=== PATIENT | female | born 1950 | race Caucasian/White ===

== ENCOUNTER 2023-04-30 09:22 | Emergency (ER) | payer MEDICARE ==
--- NOTE | 2023-04-30 09:58 | ED ---
Lower Extremity Injury HPI - General Chief Complaint: Extremity Injury, Lower Stated Complaint: right hip pain Time Seen by Provider: 04/30/23 09:58 Source: patient, RN notes reviewed Mode of arrival: ambulatory Limitations: no limitations - History of Present Illness Initial Comments: 72-year-old female presents emergency Department which complaint of right hip pain. Patient states that she's been dealing with worsening pain last 2 months. Patient states she recently moved here and was sent here today by her PCP for x-rays. Patient denies any trauma she states with certain movements the pain is worse. - Related Data Allergies Allergy/AdvReac Type Severity Reaction Status Date / Time No Known Allergies Allergy Verified 04/30/23 09:36 Review of Systems ROS Statement: Those systems with pertinent positive or pertinent negative responses have been documented in the HPI. ROS Other: All systems not noted in ROS Statement are negative. Past Medical History Past Medical History: Diabetes Mellitus, GERD/Reflux, Hyperlipidemia, Hypertension, Thyroid Disorder Additional Past Medical History / Comment(s): back pain, History of Any Multi-Drug Resistant Organisms: None Reported Past Surgical History: Section Additional Past Surgical History / Comment(s): back surgery x 2, right hand carpal tunnnel, Past Psychological History: No Psychological Hx Reported Smoking Status: Never smoker Past Alcohol Use History: None Reported Past Drug Use History: None Reported General Exam - General Exam Comments Initial Comments: Visual Physical Exam Vital signs reviewed General: Well-appearing, nontoxic, no acute distress. Head: Normocephalic, atraumatic Eyes: PERRLA, EOMI ENT: Airway patent Chest: Nonlabored breathing Skin: No visual rash, normal skin tone Neuro: Alert and oriented 3 Musculoskeletal: No gross abnormalities Limitations: no limitations Course Vital Signs 04/30/23 09:27 Temperature 98.0 F Pulse Rate 75 Respiratory 18 Rate Blood Pressure 118/59 O2 Sat by Pulse 94 L Oximetry Medical Decision Making - Medical Decision Making I completed the quick note portion of this chart signed Cory Gooden PA-C Was pt. sent in by a medical professional or institution ([facility], BUYER ASSISTANT, urgent care, hospital, or correction...) When possible be specific @ -PCP Did you speak to anyone other than the patient for history (EMS, parent, family, police, friend...)? What history was obtained from this source @ -No Did you review nursing and triage notes (agree or disagree)? Why? @ -I reviewed and agree with nursing and triage notes Were old charts reviewed (outside hosp., previous admission, EMS record, old EKG, old radiological studies, urgent care reports/EKG's, correction records)? Report findings @ -No old charts were reviewed Differential Diagnosis (chest pain, altered mental status, abdominal pain women, abdominal pain men, vaginal bleeding, weakness, fever, dyspnea, syncope, headache, dizziness, GI bleed, back pain, seizure, CVA, palpatations, mental health, musculoskeletal)? @ -Osteoarthritis, hip pain, hip strain EKG interpreted by me (3pts min.). @ -None x-ray right hip with pelvis shows no significant abnormality mild or cerebritis X-rays interpreted by me (1pt min.). @ -None done CT interpreted by me (1pt min.). @ -None done U/S interpreted by me (1pt. min.). @ -None done What testing was considered but not performed or refused? (CT, X-rays, U/S, labs)? Why? @ -None What meds were considered but not given or refused? Why? @ -None Did you discuss the management of the patient with other professionals (professionals i.e. , PA, BUYER ASSISTANT, lab, RT, psych nurse, psych social worker, locksmith, teacher, control officer manager, behavioral health case manager)? Give summary @ -No Was smoking cessation discussed for >3mins.? @ -No Was critical care preformed (if so, how long)? @ -No Were there social determinants of health that impacted care today? How? (Homelessness, low income, unemployed, alcoholism, drug addiction, transportation, low edu. Level, literacy, decrease access to med. care, penitentiary, rehab)? @ -No Was there de-escalation of care discussed even if they declined (Discuss DNR or withdrawal of care, Hospice)? DNR status @ -No What co-morbidities impacted this encounter? (DM, HTN, Smoking, COPD, CAD, Cancer, CVA, ARF, Chemo, Hep., AIDS, mental health diagnosis, sleep apnea, morbid obesity)? @ -None Was patient admitted / discharged? Hospital course, mention meds given and route, prescriptions, significant lab abnormalities, going to OR and other pertinent info. @ -Patient was discharged the patient left prior to receiving results. Undiagnosed new problem with uncertain prognosis? @ -No Drug Therapy requiring intensive monitoring for toxicity (Heparin, Nitro, Insulin, Cardizem)? @ -No Were any procedures done? @ -No Diagnosis/symptom? @ -Right hip pain Acute, or Chronic, or Acute on Chronic? @ -Acute Uncomplicated (without systemic symptoms) or Complicated (systemic symptoms)? @ -Uncomplicated Side effects of treatment? @ -No Exacerbation, Progression, or Severe Exacerbation? @ -No Poses a threat to life or bodily function? How? (Chest pain, [place], [place], pneumonia, PE, COPD, DKA, ARF, appy, cholecystitis, CVA, Diverticulitis, Homicidal, Suicidal, threat to staff... and all critical care pts) @ -No Disposition Clinical Impression: Right hip pain Disposition: LEFT AGAINST MEDICAL ADVICE Condition: Stable Referrals: David Guerrero DO [Primary Care Provider] - 1-2 days Quinn Bermeo DO [Doctor of Osteopathic Medicine] - 1-2 days Time of Disposition: 10:43
[2023-04-30 10:02] VITALS: BP 118/59; PULSE 75; RESP 18; TEMP 98
--- NOTE | 2023-04-30 10:24 | XR ---
EXAMINATION TYPE: XR Hip RT and AP Pelvis DATE OF EXAM: 04/30/2023 CLINICAL HISTORY: pain TECHNIQUE: AP and frogleg views of the right hip are obtained. COMPARISON: None. FINDINGS: There is no acute fracture/dislocation evident. The joint space appears mildly narrowed. The overlying soft tissue appears unremarkable. IMPRESSION: 1. There is no acute fracture or dislocation. ICD 10 NO FRACTURE, INITIAL EVALUATION
== END 2023-04-30 11:47 | disposition left against medical advice (07) ==
LOC: EC 09:22
DX: M25.551 Pain in right hip (principal); E11.9 Type 2 diabetes mellitus without complications; I10 Essential (primary) hypertension; Z53.29 Procedure and treatment not carried out because of patient's decision for other reasons
CPT/HCPCS: 73502; 99283

== ENCOUNTER 2023-07-23 19:03 | Emergency (ER) | payer MEDICARE, OTHER ==
--- NOTE | 2023-07-23 19:29 | ED ---
Wound/Laceration HPI - General Chief Complaint: Wound/Laceration Stated Complaint: R Pinky Lac Time Seen by Provider: 07/23/23 19:28 Source: patient Mode of arrival: ambulatory Limitations: no limitations - History of Present Illness Initial Comments: 73-year-old female presenting with chief complaint of right fifth digit laceration. Patient was doing the dishes when a dish broke and cut her finger. She does not know when her last tetanus shot was. Bleeding is well-controlled at this time. She still has full range of motion and sensation to the finger. - Related Data Allergies Allergy/AdvReac Type Severity Reaction Status Date / Time No Known Allergies Allergy Verified 04/30/23 09:36 Review of Systems ROS Statement: Those systems with pertinent positive or pertinent negative responses have been documented in the HPI. ROS Other: All systems not noted in ROS Statement are negative. Past Medical History Past Medical History: Diabetes Mellitus, GERD/Reflux, Hyperlipidemia, Hypertensi on, Thyroid Disorder Additional Past Medical History / Comment(s): back pain, History of Any Multi-Drug Resistant Organisms: None Reported Past Surgical History: Section Additional Past Surgical History / Comment(s): back surgery x 2, right hand carpal tunnnel, Past Psychological History: No Psychological Hx Reported Smoking Status: Never smoker Past Alcohol Use History: None Reported Past Drug Use History: None Reported General Exam - General Exam Comments Initial Comments: Visual Physical Exam Vital signs reviewed General: Well-appearing, nontoxic, no acute distress. Head: Normocephalic, atraumatic Eyes: PERRLA, EOMI ENT: Airway patent Chest: Nonlabored breathing Skin: No visual rash, normal skin tone Neuro: Alert and oriented 3 Musculoskeletal: No gross abnormalities Limitations: no limitations General appearance: alert, in no apparent distress Head exam: Present: atraumatic, normocephalic Eye exam: Present: normal appearance Neck exam: Present: normal inspection Respiratory exam: Absent: respiratory distress Cardiovascular Exam: Present: regular rate Right Hand Wrist exam: Present: full ROM. Absent: tenderness Neurological exam: Present: alert, oriented X3 Psychiatric exam: Present: normal affect, normal mood Expanded Type of lesion: Present: laceration (2 cm laceration to the right fifth digit) Course Vital Signs 07/23/23 07/23/23 19:05 20:38 Temperature 98.1 F 98.0 F Pulse Rate 79 75 Respiratory 20 18 Rate Blood Pressure 141/72 115/54 O2 Sat by Pulse 96 94 L Oximetry Procedures - Laceration Laceration #1 Consent Obtained: verbal consent Indication: laceration Site: hand Size (cm): 2 Description: linear Depth: simple, single layer Anesthetic Used: lidocaine 1%, without epi Anesthesia Technique: local infiltration Pre-repair: wound explored Type of Sutures: nylon Size of Sutures: 4-0 Number of Sutures: 3 Technique: simple, interrupted Patient Tolerated Procedure: well Medical Decision Making - Medical Decision Making Was pt. sent in by a medical professional or institution (, [facility], RELIGION INSTRUCTOR, urgent care, hospital, or fdc...) When possible be specific @ -No Did you speak to anyone other than the patient for history (EMS, parent, family, police, friend...)? What history was obtained from this source @ -No Did you review nursing and triage notes (agree or disagree)? Why? @ -I reviewed and agree with nursing and triage notes Were old charts reviewed (outside hosp., previous admission, EMS record, old EKG, old radiological studies, urgent care reports/EKG's, fdc records)? Report findings @ -No old charts were reviewed Differential Diagnosis (chest pain, altered mental status, abdominal pain women, abdominal pain men, vaginal bleeding, weakness, fever, dyspnea, syncope, headache, dizziness, GI bleed, back pain, seizure, CVA, palpatations, mental health, musculoskeletal)? @ -Not applicable EKG interpreted by me (3pts min.). @ -As above X-rays interpreted by me (1pt min.). @ -None done CT interpreted by me (1pt min.). @ -None done U/S interpreted by me (1pt. min.). @ -None done What testing was considered but not performed or refused? (CT, X-rays, U/S, labs)? Why? @ -None What meds were considered but not given or refused? Why? @ -None Did you discuss the management of the patient with other professionals (professionals i.e. [facility], RELIGION INSTRUCTOR, lab, RT, psych nurse, social services designee, lawyer real estate, teacher, service officer, upper caser)? Give summary @ -No Was smoking cessation discussed for >3mins.? @ -No Was critical care preformed (if so, how long)? @ -No Were there social determinants of health that impacted care today? How? (Homelessness, low income, unemployed, alcoholism, drug addiction, transportation, low edu. Level, literacy, decrease access to med. care, detention, rehab)? @ -No Was there de-escalation of care discussed even if they declined (Discuss DNR or withdrawal of care, Hospice)? DNR status @ -No What co-morbidities impacted this encounter? (DM, HTN, Smoking, COPD, CAD, Cancer, CVA, ARF, Chemo, Hep., AIDS, mental health diagnosis, sleep apnea, morbid obesity)? @ -None Was patient admitted / discharged? Hospital course, mention meds given and route, prescriptions, significant lab abnormalities, going to OR and other pertinent info. @ -73-year-old female presented chief complaint of 2 cm laceration to the right fifth digit. She cut the finger on a broken dish while doing dishes tonight. Tetanus is updated at this visit. Wound is cleansed and repaired. She is educated on wound care and signs of infection. Discharged home. Follow-up with PCP. Report back to ER with any new or worsening symptoms. Discussed return parameters and answered all questions. Patient conveyed verbal understanding and agreed to the plan. I discussed this case in detail with my attending Dr. Cassidy Undiagnosed new problem with uncertain prognosis? @ -No Drug Therapy requiring intensive monitoring for toxicity (Heparin, Nitro, Insulin, Cardizem)? @ -No Were any procedures done? @ -Laceration repair Diagnosis/symptom? @ -Finger laceration Acute, or Chronic, or Acute on Chronic? @ -Acute Uncomplicated (without systemic symptoms) or Complicated (systemic symptoms)? @ -Uncomplicated Side effects of treatment? @ -No Exacerbation, Progression, or Severe Exacerbation? @ -No Poses a threat to life or bodily function? How? (Chest pain, [place], [place], pneumonia, PE, COPD, DKA, ARF, appy, cholecystitis, CVA, Diverticulitis, Homicidal, Suicidal, threat to staff... and all critical care pts) @ -No Disposition Clinical Impression: Laceration Disposition: HOME SELF-CARE Condition: Good Instructions (If sedation given, give patient instructions): Care For Your Stitches (ED), Finger Laceration (ED) Additional Instructions: Follow up with PCP. Report back to ER with any new or worsening symptoms. Keep the wound clean dry and covered. Wash daily with soap and water. Sutures may be removed in 10 to 14 days. Monitor for signs of infection, including but not limited to redness, swelling, warmth, tenderness, discharge Is patient prescribed a controlled substance at d/c from ED?: No Referrals: David Guerrero DO [Primary Care Provider] - 1-2 days Time of Disposition: 20:13
[2023-07-23] MEDS: DIPH,PERTUS(ACELL)TETVAC-LF 0.5 ML VIAL IM ONE (20:26)
[2023-07-23] MEDS: BACITRACIN OINT 1 EACH PACKET TOPICAL ONE ×2 (20:34)
[2023-07-23 20:52] VITALS: BP 115/54; PULSE 75; RESP 18; TEMP 98
== END 2023-07-23 20:44 | disposition home or self-care (01) ==
LOC: EC 19:03
DX: S61.216A Laceration without foreign body of right little finger without damage to nail, initial encounter (principal); E11.9 Type 2 diabetes mellitus without complications; I10 Essential (primary) hypertension; Z23 Encounter for immunization; W26.8XXA Contact with other sharp object(s), not elsewhere classified, initial encounter
CPT/HCPCS: 12001; 90471; 90715; 99282

== ENCOUNTER 2023-11-16 09:38 | Inpatient (IN) | payer MEDICARE, OTHER ==
--- NOTE | 2023-11-16 10:42 | ED ---
Fall HPI - General Chief Complaint: Extremity Injury, Lower Stated Complaint: Fall Time Seen by Provider: 11/16/23 09:46 Source: patient, RN notes reviewed Mode of arrival: ambulatory Limitations: no limitations - History of Present Illness Initial Comments: This is a 73-year-old female who presents to the emergency department for a fall. States that this morning she was letting out her dog when she tripped and fell, landing on her left side. Denies hitting her head or any loss of consciousness. Not taking any blood thinners. Currently has pain over the left hip and left femur. States that this is making it difficult for her to ambulate. Reports some pain over the left elbow and shoulder as well, however it is not as severe as the leg. She does have an abrasion to the elbow. Unsure when her last tetanus vaccine was. MD Complaint: fall - Related Data Home Medications Medication Instructions Recorded Confirmed Baclofen [Lioresal] 10 mg PO BID 11/16/23 11/16/23 Cyclobenzaprine [Flexeril] 10 mg PO BID 11/16/23 11/16/23 Docusate [Colace] 100 mg PO TID 11/16/23 11/16/23 Gabapentin 800 mg PO BID@0700,2100 11/16/23 11/16/23 Gabapentin 800 mg PO DAILY@1400 11/16/23 11/16/23 HYDROcodone/APAP 10-325MG [[place] 1 tab PO TID PRN 11/16/23 11/16/23 10-325] Levothyroxine Sodium [Synthroid] 75 mcg PO DAILY 11/16/23 11/16/23 Magnesium Oxide [Mag-Ox] 400 mg PO DAILY 11/16/23 11/16/23 Nebivolol HCl 5 mg PO DAILY 11/16/23 11/16/23 Omeprazole 20 mg PO DAILY 11/16/23 11/16/23 Pravastatin Sodium [Pravachol] 40 mg PO DAILY 11/16/23 11/16/23 Spironolactone [Aldactone] 50 mg PO DAILY 11/16/23 11/16/23 metFORMIN HCL [metFORMIN HCL ER] 750 mg PO DAILY 11/16/23 11/16/23 Allergies Allergy/AdvReac Type Severity Reaction Status Date / Time No Known Allergies Allergy Verified 11/16/23 15:36 Review of Systems ROS Statement: Those systems with pertinent positive or pertinent negative responses have been documented in the HPI. ROS Other: All systems not noted in ROS Statement are negative. Past Medical History Past Medical History: Diabetes Mellitus, GERD/Reflux, Hyperlipidemia, Hypertension, Thyroid Disorder Additional Past Medical History / Comment(s): back pain, History of Any Multi-Drug Resistant Organisms: None Reported Past Surgical History: Section Additional Past Surgical History / Comment(s): back surgery x 2, right hand carpal tunnnel, Past Psychological History: No Psychological Hx Reported Smoking Status: Never smoker Past Alcohol Use History: None Reported Past Drug Use History: None Reported General Exam Limitations: no limitations General appearance: alert, in no apparent distress Head exam: Present: atraumatic, normocephalic, normal inspection Respiratory exam: Present: normal lung sounds bilaterally. Absent: respiratory distress, wheezes, rales, rhonchi, stridor Cardiovascular Exam: Present: regular rate, normal rhythm, normal heart sounds. Absent: systolic murmur, diastolic murmur, rubs, gallop, clicks Extremities exam: Present: other (Tenderness palpation over the left hip with range of motion limited by pain. 2+ DP and PT pulses. Superficial abrasion over the left elbow. Tenderness to palpation over the left shoulder. 2+ radial pulses.) Neurological exam: Present: alert, oriented X3, CN II-XII intact Psychiatric exam: Present: normal affect, normal mood Skin exam: Present: warm, dry, normal color. Absent: rash Course Vital Signs 11/16/23 11/16/23 11/16/23 09:42 13:11 14:45 Temperature 98 F Pulse Rate 75 71 77 Respiratory 20 18 18 Rate Blood Pressure 141/78 112/70 130/64 O2 Sat by Pulse 96 96 99 Oximetry Medical Decision Making - Medical Decision Making This is a 73 year old female who presents to the emergency department for left leg pain after a fall. Was pt. sent in by a medical professional or institution? @ -No Did you speak to anyone other than the patient for history? @ -No Did you review nursing and triage notes? @ -Yes, and I agree, it is accurate with regards to the patient's symptoms. Were old charts reviewed? @ -No Differential Diagnosis? @ -Differential Musculoskeletal: Muscular strain, contusion, ligament sprain, fracture, arthritis, septic arthritis, bursitis, cellulitis, muscle spasm, nerve compression, DVT, arterial occlusion, herpes zoster, electrolyte abnormality, tumor.... This is not meant to be in all inclusive list EKG interpreted by me (3pts min.)? @ -Not obtained X-rays interpreted by me (1pt min.)? @ -X-ray of the left hip/pelvis, left femur, left elbow, and left shoulder obtained. My interpretation of all imaging identifies no acute fractures. CT interpreted by me (1pt min.)? @ -CT scan of the left hip obtained. My interpretation identifies a left greater trochanter fracture. U/S interpreted by me (1pt. min.)? @ -Not obtained What testing was considered but not performed? (CT, X-rays, U/S, labs)? Why? @ -None What meds were considered but not given? Why? @ -None Did you discuss the management of the patient with other professionals? @ -No Did you reconcile home meds? @ -Yes Was smoking cessation discussed for >3mins.? @ -No Was critical care preformed (if so, how long)? @ -No Were there social determinants of health that impacted care today? How? (Homelessness, low income, unemployed, alcoholism, drug addiction, transportation, low edu. Level, literacy, decrease access to med. care, custodial, rehab)? @ -No Was there de-escalation of care discussed even if they declined? (Discuss DNR or withdrawal of care, Hospice)? @ -No What co-morbidities impacted this encounter? (DM, HTN, Smoking, COPD, CAD, Cancer, CVA, Hep., AIDS, mental health diagnosis, sleep apnea, morbid obesity)? @ -None Was patient admitted / discharged? @ -Admitted. We initially proceeded with x-rays of the left hip/pelvis, left femur, left shoulder, and left elbow. Images were negative for any acute injury. Patient did however continue to be in severe pain with difficulty moving the leg and with ambulation. CT scan of the hip was subsequently obtained. This demonstrated a mildly comminuted, mildly displaced fracture of the superior aspect of the left greater trochanter. Patient was given several doses of pain medication to see if she could ambulate with the use of a walker, however she continued to be in too much pain. She is also on multiple pain medications at home, which would limit our ability to manage her on an outpatient basis. She was subsequently admitted to medicine for management of pain related to greater trochanter fracture. Consult placed for orthopedics. Undiagnosed new problem with uncertain prognosis? @ -None Drug Therapy requiring intensive monitoring for toxicity (Heparin, Nitro, Insulin, Cardizem)? @ -None Were any procedures done? @ -None Diagnosis/symptom? @ -Fall, left greater trochanter fracture Acute, or Chronic, or Acute on Chronic? @ -Acute Uncomplicated (without systemic symptoms) or Complicated (systemic symptoms)? @ -Uncomplicated Side effects of treatment? @ -None Exacerbation, Progression, or Severe Exacerbation] @ -Not applicable Poses a threat to life or bodily function? @ -Yes, patient is unable to ambulate This case was discussed in detail with the attending ED physician, Dr. Miramontes. Presentation, findings, and treatment plan discussed in detail as well. - Radiology Data Radiology results: report reviewed, image reviewed Disposition Clinical Impression: Fracture of greater trochanter of left femur, Fall, Inability to ambulate due to hip Disposition: ADMITTED IP TO THIS [facility] Referrals: David Guerrero DO [Primary Care Provider] - 1-2 days
[2023-11-16] MEDS: DIPH,PERTUS(ACELL)TETVAC-LF 0.5 ML VIAL IM ONE (12:11)
[2023-11-16] MEDS: KETOROLAC 15 MG/ML 1 ML VIAL IM STA (12:11)
--- NOTE | 2023-11-16 12:11 | XR ---
EXAMINATION TYPE: XR Hip LT and AP Pelvis DATE OF EXAM: 11/16/2023 11:03 AM CLINICAL INDICATION:Female, 73 years old with history of Fall; [facility] COMPARISON: None. TECHNIQUE: Frontal view pelvis with 2 views left hip. 4 views left femur. 3 views left shoulder. 3 vi ews left elbow. FINDINGS: Normal osseous mineralization. No destructive lesions are seen. Pelvis and left hip: Pelvis appear symmetric and intact without evidence of acute fracture. Mild to moderate bilateral hip arthropathy without evidence of hip fracture or dislocation. Degenerative and postoperative changes of the lower lumbar spine with mild to moderate degenerative change of the SI joints. Left femur: Left femur appears intact. Visualized knee shows mild/moderate tricompartmental osteoarthropathy without fracture or dislocation on these views. Left shoulder: Mild degenerative change of the glenohumeral and A/C joints without evidence of fracture or dislocati on. Left elbow: Mild/moderate degenerative changes of the elbow without acute fracture or dislocation. Enthesopathic spurring of the proximal ulna with adjacent dystrophic soft tissue calcification. No significant elbo w joint effusion seen. No radiopaque foreign body. IMPRESSION: No acute fracture or dislocation identified in the pelvis, left hip/femur, left shoulder, or left elb ow.
--- NOTE | 2023-11-16 12:13 | XR ---
EXAMINATION TYPE: XR shoulder complete LT DATE OF EXAM: 11/16/2023 11:04 AM CLINICAL INDICATION:Female, 73 years old with history of Fall; [facility] COMPARISON: None. TECHNIQUE: Frontal view pelvis with 2 views left hip. 4 views left femur. 3 views left shoulder. 3 vi ews left elbow. FINDINGS: Normal osseous mineralization. No destructive lesions are seen. Pelvis and left hip: Pelvis appear symmetric and intact without evidence of acute fracture. Mild to moderate bilateral hip arthropathy without evidence of hip fracture or dislocation. Degenerative and postoperative changes of the lower lumbar spine with mild to moderate degenerative change of the SI joints. Left femur: Left femur appears intact. Visualized knee shows mild/moderate tricompartmental osteoarthropathy without fracture or dislocation on these views. Left shoulder: Mild degenerative change of the glenohumeral and A/C joints without evidence of fracture or dislocati on. Left elbow: Mild/moderate degenerative changes of the elbow without acute fracture or dislocation. Enthesopathic spurring of the proximal ulna with adjacent dystrophic soft tissue calcification. No significant elbo w joint effusion seen. No radiopaque foreign body. IMPRESSION: No acute fracture or dislocation identified in the pelvis, left hip/femur, left shoulder, or left elb ow.
--- NOTE | 2023-11-16 14:24 | CT ---
EXAMINATION TYPE: CT hip LT wo con DATE OF EXAM: 11/16/2023 12:47 PM COMPARISON: Earlier same day plain films CLINICAL INDICATION:Female, 73 years old with history of Fall; PHH, left hip pain TECHNIQUE: Noncontrast CT was obtained of the left hip. Axial coronal and sagittal reformatted image s, soft tissue and bone window were submitted for review. 3-D reconstruction was created on a [employer] workstation. Contrast used: mL of , Oral contrast used: None CT DLP: 554.8 mGycm, Automated exposure control for dose reduction was used. FINDINGS: Bone: Osseous mineralization is somewhat diminished. No evidence of any focal lytic lesions. Posterior and inferior to the left hip there is a small sclerotic focus which is probably a bone island. Visualized left hemipelvis shows no fracture, to include the acetabulum. Mild degenerative change of the left S I joint. Visualized sacrum appears intact. Mild to moderate degenerative changes of the left femoral acetabular joint. There is no hip dislocati on. Preserved spherical shape of the femoral head with some marginal osteophytes. Femoral head, neck and intertrochanteric region are intact. There is a subtle mildly comminuted fracture involving the s uperior aspect of the greater trochanter, acute in appearance. Degenerative change of the more inferi or greater trochanter with a hook-like osteophyte noted. Visualized proximal femoral shaft is intact. Soft tissues: Soft tissues are unremarkable. No focal fluid collection, soft tissue gas, or radiopaque foreign body is seen. Partially visualized pelvic contents shows the uterus to be deviated into the left hemipelvis. Visual ized bladder is unremarkable. There is a pelvic kidney on the right. Scattered arterial vascular calc ifications. Other: No additional significant finding. IMPRESSION: Mildly comminuted, mildly displaced fracture of the superior aspect of the left greater trochanter.
[2023-11-16] MEDS: MORPHINE SULFATE 2 MG/ML SYRINGE IM STA (14:52)
[2023-11-16] MEDS: NAPROXEN 250 MG TAB PO STA (17:15)
[2023-11-16] MEDS: HYDROcodone/APAP 10-325MG 1 EACH TAB PO ONE (17:16)
[2023-11-16] MEDS ORDERED: MORPHINE SULFATE 4 MG/ML SYRINGE IV PRN (17:59)
[2023-11-16] MEDS ORDERED: KETOROLAC 15 MG/ML 1 ML VIAL IVP PRN (17:59)
[2023-11-16] MEDS ORDERED: NALOXONE 0.4 MG/ML 1 ML VIAL IV PRN (17:59)
[2023-11-16] MEDS ORDERED: ACETAMINOPHEN TAB 325 MG TAB PO PRN (17:59)
[2023-11-16] MEDS ORDERED: IBUPROFEN 400 MG TAB PO PRN (17:59)
[2023-11-16 19:00] LABS: Basophils # (A) 0.1 k/uL (0-0.2); Basophils % (A) 0 %; Eosinophils # (A) 0.2 k/uL (0-0.7); Eosinophils % (A) 2 %; HCT 45.6 % (34.0-46.0); HGB 14.1 gm/dL (11.4-16.0); Hypochromasia Slight; Lymphocytes # (A) 2.6 k/uL (1.0-4.8); Lymphocytes % (A) 21 %; MCH 27.7 pg (25.0-35.0); MCHC 30.8 g/dL (31.0-37.0); MCV 89.7 fL (80.0-100.0); Mean Platelet Volume 10.5; Monocytes # (A) 0.5 k/uL (0-1.0); Monocytes % (A) 4 %; Neutrophils % (A) 71 %; Platelet Count 260 k/uL (150-450); RBC 5.08 m/uL (3.80-5.40); RDW 14.2 % (11.5-15.5); WBC 12.7 k/uL (3.8-10.6)
[2023-11-16 19:25] LABS: ALT 23 U/L (4-34); AST 34 U/L (14-36); African American GFR (CKD) 86 (>60 ml/min/1.73 sqM); Albumin 4.4 g/dL (3.5-5.0); Alkaline Phosphatase 67 U/L (38-126); Anion Gap 7 mmol/L; Blood Urea Nitrogen 11 mg/dL (7-17); Calcium 9.3 mg/dL (8.4-10.2); Carbon Dioxide 26 mmol/L (22-30); Chloride 107 mmol/L (98-107); Glucose 107 mg/dL (74-99); Non-African American GFR(CKD) 75 (>60 ml/min/1.73 sqM); Potassium 4.3 mmol/L (3.5-5.1); Sodium 140 mmol/L (137-145); Total Bilirubin 0.7 mg/dL (0.2-1.3); Total Protein 6.7 g/dL (6.3-8.2)
[2023-11-16] MEDS: HYDROcodone/APAP 10-325MG 1 EACH TAB PO PRN (21:31)
[2023-11-16] MEDS: CYCLOBENZAPRINE 10 MG TAB PO SCH (22:18)
[2023-11-16] MEDS: BACLOFEN 10 MG TAB PO SCH (22:18)
[2023-11-16] MEDS: GABAPENTIN 400 MG CAP PO SCH (22:18)
[2023-11-16] MEDS: DOCUSATE 100 MG CAP PO SCH (22:18)
[2023-11-17 01:59] LABS: Appearance,Urine Clear (Clear); Bilirubin,Urine Negative (Negative); Blood,Urine Negative (Negative); Color,Urine Colorless; Glucose,Urine (UA) Negative (Negative); Ketones,Urine Negative (Negative); Nitrite,Urine Negative (Negative); Protein,Urine Negative (Negative); Specific Gravity,Urine 1.007 (1.001-1.035); Urobilinogen,Urine 0.2 mg/dL (<2.0)
[2023-11-17 02:00] LABS: Bacteria,Urine Few /hpf; Leukocyte Esterase,Urine Moderate (Negative); RBC,Urine 2 /hpf (0-5); Squamous Epithelial Cell,Urine 2 /hpf (0-4); WBC,Urine 25 /hpf (0-5)
[2023-11-17] MEDS: LEVOTHYROXINE 75 MCG TAB PO SCH (06:11)
[2023-11-17] MEDS: PANTOPRAZOLE 40 MG TABLET PO SCH (06:11)
[2023-11-17] MEDS: NEBIVOLOL 5 MG TAB PO SCH (08:15)
[2023-11-17] MEDS: metFORMIN 500 MG TAB PO SCH (08:15)
[2023-11-17] MEDS: MAGNESIUM OXIDE 400 MG TAB PO SCH (08:15)
[2023-11-17] MEDS: SPIRONOLACTONE 25 MG TAB PO SCH (08:15)
[2023-11-17] MEDS: PRAVASTATIN SODIUM 40 MG TAB PO SCH (08:16)
--- NOTE | 2023-11-17 08:55 | P.CNOR ---
History of Present Illness - HPI History of present illness: The patient is a very pleasant relatively healthy 73-year-old female who is presently admitted to internal medicine. Orthopedics was consulted for a left hip greater trochanter fracture. I met with and evaluated the patient this morning. The patient states that yesterday she was letting her dog when she tripped and fell injuring her left hip. She was able to get up and ambulate afterwards. Due to her increasing pain she presented to the ER where x-rays were taken followed by a computed tomography scan both of which showed a minimally displaced greater trochanter fracture. At the time of my evaluation the patient is complaining of pain over the lateral aspect of her hip into the groin. She states that she has been able to walk but it is painful. She denies any prior hip pain. Past Medical History Past Medical History: Diabetes Mellitus, GERD/Reflux, Hyperlipidemia, Hypertension, Thyroid Disorder Additional Past Medical History / Comment(s): back pain, History of Any Multi-Drug Resistant Organisms: None Reported Past Surgical History: Section Additional Past Surgical History / Comment(s): back surgery x 2, right hand carpal tunnnel, puss pockets debridement in vaginal area 1996 Past Anesthesia/Blood Transfusion Reactions: No Reported Reaction Past Psychological History: No Psychological Hx Reported Smoking Status: Former smoker Past Alcohol Use History: None Reported Past Drug Use History: None Reported Medications and Allergies Home Medications Medication Instructions Recorded Confirmed Type Baclofen [Lioresal] 10 mg PO BID 11/16/23 11/16/23 History Cyclobenzaprine [Flexeril] 10 mg PO BID 11/16/23 11/16/23 History Docusate [Colace] 100 mg PO TID 11/16/23 11/16/23 History Gabapentin 800 mg PO BID@0700,2100 11/16/23 11/16/23 History Gabapentin 800 mg PO DAILY@1400 11/16/23 11/16/23 History HYDROcodone/APAP 10-325MG [[place] 1 tab PO TID PRN 11/16/23 11/16/23 History 10-325] Levothyroxine Sodium [Synthroid] 75 mcg PO DAILY 11/16/23 11/16/23 History Magnesium Oxide [Mag-Ox] 400 mg PO DAILY 11/16/23 11/16/23 History Nebivolol HCl 5 mg PO DAILY 11/16/23 11/16/23 History Omeprazole 20 mg PO DAILY 11/16/23 11/16/23 History Pravastatin Sodium [Pravachol] 40 mg PO DAILY 11/16/23 11/16/23 History Spironolactone [Aldactone] 50 mg PO DAILY 11/16/23 11/16/23 History metFORMIN HCL [metFORMIN HCL ER] 750 mg PO DAILY 11/16/23 11/16/23 History Allergies Allergy/AdvReac Type Severity Reaction Status Date / Time No Known Allergies Allergy Verified 11/16/23 15:36 Physical Examination The patient is sitting up at bedside. She is alert and able to answer questions. Her head is normocephalic and atraumatic. She can straight nonlabored breathing with symmetric chest expansion. A focused exam of the left lower extremity was conducted. On inspection of her left hip there are no open wounds or skin lesions. She has tenderness over the greater trochanter. She is able to perform a straight leg raise. She has pain with passive range motion of the hip. She is able to actively plantarflex and dorsiflex her ankle and her toes. Results X-rays of the pelvis and left hip as well as a computed tomography scan of the left hip show a small later trochanter fracture. There is mild hip arthritis. There does not appear to be any intertrochanteric extension. She has a lumbar s pine fusion with instrumentation and the visualized portion of the lower spine. X-rays of the shoulder are negative. - Labs Labs: Abnormal Lab Results - Last 24 Hours (Table) 11/16/23 11/16/23 11/16/23 Range/Units 18:54 18:54 23:49 WBC 12.7 H (3.8-10.6) k/uL MCHC 30.8 L (31.0-37.0) g/dL Neutrophils # 9.0 H (1.3-7.7) k/uL Glucose 107 H (74-99) mg/dL Urine WBC 25 H (0-5) /hpf Urine Bacteria Few H (None) /hpf H & H 11/16/23 Range/Units 18:54 Hgb 14.1 (11.4-16.0) gm/dL Hct 45.6 (34.0-46.0) % Result Diagrams: 11/16/23 18:54 11/16/23 18:54 Assessment and Plan Assessment: Left greater trochanter fracture Plan: I would recommend weightbearing as tolerated with a walker. I would also like to get an MRI of the left hip to evaluate for intertrochanteric extension. Further recommendations following MRI. Time with Patient: Greater than 30
[2023-11-17] MEDS ORDERED: PANTOPRAZOLE 40 MG/10 ML VIAL IV SCH (09:00)
[2023-11-17] MEDS ORDERED: DEXTROSE 50% SYRINGE 50 ML IVP PRN ×2 (14:39)
--- NOTE | 2023-11-17 14:55 | P.HPIM ---
History of Present Illness H&P Date: 11/17/23 This is a 73-year-old female with medical history significant for hypertension, hyperlipidemia, hypothyroidism, neuropathy. She comes into the hospital after suffering a fall with trauma. Patient was letting her dog out when she fell and landed on her left side. She did not hit her head and denies any loss of consciousness. Patient was unable to ambulate this morning was having pain over the left hip and left femur so she came into the hospital for further evaluation. Patient had an x-ray completed of the left elbow showing degenerative changes without acute fracture or dislocation. X-ray of the pelvis and left hip shows no acute fracture of the pelvis and no acute fracture of the hip or dislocation. Patient had continued pain and for this reason a hip CT was completed which shows a mildly comminuted mildly displaced fracture of the superior aspect of the left greater trochanter. Patient is not having any chest pain, any shortness of breath. No numbness or tingling in the left leg. White blood cell count is 12.7, electrolytes and renal function are WNL. Urinalysis is normal and not suggestive of infection. We will check an EKG for preoperative clearance. Patient is on aldactone no reported history of heart failure. REVIEW OF SYSTEMS: CONSTITUTIONAL: No fever, no malaise, no fatigue. HEENT: No recent visual problems or hearing problems. Denied any sore throat. CARDIOVASCULAR: No chest pain, orthopnea, PND, no palpitations, no syncope. PULMONARY: No shortness of breath, no cough, no hemoptysis. GASTROINTESTINAL: No diarrhea, no nausea, no vomiting, no abdominal pain. NEUROLOGICAL: No headaches, no weakness, no numbness. HEMATOLOGICAL: Denies any bleeding or petechiae. GENITOURINARY: Denies any burning micturition, frequency, or urgency. MUSCULOSKELETAL/RHEUMATOLOGICAL: Denies any joint pain, swelling, or any muscle pain. ENDOCRINE: Denies any polyuria or polydipsia. The rest of the 14-point review of systems is negative. PHYSICAL EXAMINATION: GENERAL: The patient is alert and oriented x3, not in any acute distress. Well developed, well nourished. HEENT: Pupils are round and equally reacting to light. EOMI. No scleral icterus. No conjunctival pallor. Normocephalic, atraumatic. No pharyngeal erythema. No thyromegaly. CARDIOVASCULAR: S1 and S2 present. No murmurs, rubs, or gallops. PULMONARY: Chest is clear to auscultation, no wheezing or crackles. ABDOMEN: Soft, nontender, nondistended, normoactive bowel sounds. No palpable organomegaly. MUSCULOSKELETAL: No joint swelling or deformity. EXTREMITIES: No cyanosis, clubbing, or pedal edema. NEUROLOGICAL: Gross neurological examination did not reveal any focal deficits. SKIN: No rashes. Assessment and plan Fall with trauma patient has a mildly comminuted mildly displaced fracture of the superior aspect of the left greater trochanter will be going for an MRI of the hip tomorrow and further recommendations Hx of hypertension on nebivolol which will be held at this time as well as aldactone. Blood pressure is normotensive at this time. Hyperlipidemia maintained on statin therapy. Gastroesophageal reflux disease maintained on protonix Hypothyroidism on synthroid which has been resumed Diabetes mellitus type 2 metformin will be held and continue on accuchecks ACHS and sliding scale insulin. Smoking history GI prophylaxis: protonix DVT prophylaxis: heparin Full Code Check a chest xray and EKG for postoperative clearance if needed. patient will be going for a MRI of the left hip tomorrow. Orthopedics following. As mentioned hold blood pressure medications. Monitor renal function. The impression and plan of care has been dictated by Nurse Taylor Pr actitioner as directed. Dr. Kenneth MD I have performed a history and physical examination and medical decision making of this patient, discussed the same with the dictator, and agree with the dicta tors assessment and plan as written, documented as a scribe. Based on total visit time, I have performed more than 50% of this visit. Past Medical History Past Medical History: Diabetes Mellitus, GERD/Reflux, Hyperlipidemia, Hypertension, Thyroid Disorder Additional Past Medical History / Comment(s): back pain, History of Any Multi-Drug Resistant Organisms: None Reported Past Surgical History: Section Additional Past Surgical History / Comment(s): back surgery x 2, right hand carpal tunnnel, puss pockets debridement in vaginal area 1996 Past Anesthesia/Blood Transfusion Reactions: No Reported Reaction Past Psychological History: No Psychological Hx Reported Smoking Status: Former smoker Past Alcohol Use History: None Reported Past Drug Use History: None Reported Medications and Allergies Home Medications Medication Instructions Recorded Confirmed Type Baclofen [Lioresal] 10 mg PO BID 11/16/23 11/16/23 History Cyclobenzaprine [Flexeril] 10 mg PO BID 11/16/23 11/16/23 History Docusate [Colace] 100 mg PO TID 11/16/23 11/16/23 History Gabapentin 800 mg PO BID@0700,2100 11/16/23 11/16/23 History Gabapentin 800 mg PO DAILY@1400 11/16/23 11/16/23 History HYDROcodone/APAP 10-325MG [[place] 1 tab PO TID PRN 11/16/23 11/16/23 History 10-325] Levothyroxine Sodium [Synthroid] 75 mcg PO DAILY 11/16/23 11/16/23 History Magnesium Oxide [Mag-Ox] 400 mg PO DAILY 11/16/23 11/16/23 History Nebivolol HCl 5 mg PO DAILY 11/16/23 11/16/23 History Omeprazole 20 mg PO DAILY 11/16/23 11/16/23 History Pravastatin Sodium [Pravachol] 40 mg PO DAILY 11/16/23 11/16/23 History Spironolactone [Aldactone] 50 mg PO DAILY 11/16/23 11/16/23 History metFORMIN HCL [metFORMIN HCL ER] 750 mg PO DAILY 11/16/23 11/16/23 History Allergies Allergy/AdvReac Type Severity Reaction Status Date / Time No Known Allergies Allergy Verified 11/16/23 15:36 Physical Exam Vitals: Vital Signs Temp Pulse Pulse Resp BP BP Pulse Ox 11/17/23 07:21 97.9 F 82 18 110/58 96 11/17/23 01:54 98.2 F 79 18 112/55 90 L 11/16/23 22:15 97.7 F 79 18 135/76 94 L 11/16/23 21:27 76 19 119/63 95 11/16/23 18:40 98.5 F 71 18 121/91 94 L 11/16/23 14:45 77 18 130/64 99 Intake and Output 11/16/23 11/17/23 11/17/23 22:59 06:59 14:59 Other: Voiding Method Toilet # Voids 2 Weight 72.575 kg Results CBC & Chem 7: 11/16/23 18:54 11/16/23 18:54 Labs: Abnormal Lab Results - Last 24 Hours (Table) 11/16/23 11/16/23 11/16/23 Range/Units 18:54 18:54 23:49 WBC 12.7 H (3.8-10.6) k/uL MCHC 30.8 L (31.0-37.0) g/dL Neutrophils # 9.0 H (1.3-7.7) k/uL Glucose 107 H (74-99) mg/dL Urine WBC 25 H (0-5) /hpf Urine Bacteria Few H (None) /hpf Assessment and Plan Time with Patient: Less than 30
[2023-11-17 16:27] LABS: Glucose,Whole Blood 92 mg/dL (70-110)
[2023-11-17] MEDS: INSULIN ASPART (NovoLOG) 100 UNIT/ML VIAL SQ SCH (17:14)
[2023-11-17] MEDS: GABAPENTIN 400 MG CAP PO SCH (17:16)
[2023-11-17] MEDS: HEPARIN SODIUM,PORCINE 5,000 UNIT/ML 1 ML VIAL SQ SCH (20:23)
[2023-11-17 20:27] LABS: Glucose,Whole Blood 125 mg/dL (70-110)
[2023-11-18 06:00] LABS: Glucose,Whole Blood 113 mg/dL (70-110)
--- NOTE | 2023-11-18 08:34 | XR ---
EXAMINATION TYPE: XR chest 2V DATE OF EXAM: 11/18/2023 COMPARISON: None INDICATION: Preop TECHNIQUE: Frontal and lateral views of the chest are obtained. FINDINGS: The heart size is normal. The pulmonary vasculature is normal. The lungs are clear. Lumbar spine fixation screws are evident. IMPRESSION: 1. No acute pulmonary process.
[2023-11-18 08:41] LABS: BUN/Creat Ratio 9.12 Ratio (12.00-20.00); Blood Urea Nitrogen 7.3 mg/dL (9.0-27.0); Chloride 108 mmol/L (96-109); Glucose 128 mg/dL (70-110); Potassium 4.8 mmol/L (3.5-5.5); Sodium 142 mmol/L (135-145)
[2023-11-18 08:42] LABS: Carbon Dioxide 23.4 mmol/L (21.6-31.8)
--- NOTE | 2023-11-18 10:44 | MR ---
EXAMINATION TYPE: MR hip LT wo con DATE OF EXAM: 11/18/2023 10:31 AM CLINICAL INDICATION:Female, 73 years old with history of greater troch fx, r/o IT extension; PHH, Lef t greater trochanter fx, R/O IT extension. COMPARISON: CT 11/16/2023. TECHNIQUE: Multiplanar multi-sequential magnetic resonance imaging of the left hip without contrast. IV Contrast: cc none FINDINGS: Degeneration changes of the hips with osteophyte formation. Low signal fracture line is seen extendin g from the left greater trochanter to the lesser trochanter series 201 image 13. There is associated bony edema. This soft tissue swelling and edema around the left hip are noted. There is no additional fractures definitively visualized. Soft tissues: Normal Other: There is a pelvic kidney with out evidence of hydronephrosis. Postsurgical changes to the spin e partially visualized susceptibility artifact. The urinary bladder is within normal limits. The uter us is displaced left laterally. IMPRESSION: 1. Confirmation of intertrochanteric fracture through the left femur without significant displacemen t. 2. Mild bilateral hip osteoarthrosis. 3. Pelvic transplant kidney without evidence of hydronephrosis.
[2023-11-18 11:38] LABS: Glucose,Whole Blood 96 mg/dL (70-110)
[2023-11-18 16:45] LABS: Glucose,Whole Blood 129 mg/dL (70-110)
--- NOTE | 2023-11-18 20:06 | P.PN ---
Subjective Progress Note Date: 11/18/23 This is a 73-year-old female with medical history significant for hypertension, hyperlipidemia, hypothyroidism, neuropathy. She comes into the hospital after suffering a fall with trauma. Patient was letting her dog out when she fell and landed on her left side. She did not hit her head and denies any loss of consciousness. Patient was unable to ambulate this morning was having pain over the left hip and left femur so she came into the hospital for further evaluation. Patient had an x-ray completed of the left elbow showing degenerative changes without acute fracture or dislocation. X-ray of the pelvis and left hip shows no acute fracture of the pelvis and no acute fracture of the hip or dislocation. Patient had continued pain and for this reason a hip CT was completed which shows a mildly comminuted mildly displaced fracture of the superior aspect of the left greater trochanter. Patient is not having any chest pain, any shortness of breath. No numbness or tingling in the left leg. White blood cell count is 12.7, electrolytes and renal function are WNL. Urinalysis is normal and not suggestive of infection. We will check an EKG for preoperative clearance. Patient is on aldactone no reported history of heart failure. 11/18/2023 Patient is evaluated today in follow up on the medical floor. Patient underwent MRI of the left hip today which reveals confirmation of the intertrochanteric fracture through the left femur without significant displacement. Mild bilateral hip osteoarthritis. Pelvic transplant kidney without evidence of hydronephrosis. Patient is hesitant on undergoing surgical repair of the left hip and wants to further discuss with the orthopedics surgeon. Chest xray showing no acute pulmonary process. EKG reveals normal sinus rhythm heart rate of [address] ific ST or T wave changes. Patient is medically cleared with low operative risk to undergo surgical repair of the left hip fracture if patient wishes to proceed. Review of Systems Constitutional: Denied any fatigue denied any fever. Cardio vascular: denied any chest pain, palpitations Gastrointestinal: denied any nausea, vomiting, diarrhea Pulmonary: Denied any shortness of breath cough Neurologic denied any new focal deficits All inpatient medications were reviewed and appropriate changes in these medications as dictated in the interval history and assessment and plan PHYSICAL EXAMINATION: GENERAL: The patient is alert and oriented x3, not in any acute distress. Well developed, well nourished. HEENT: Pupils are round and equally reacting to light. EOMI. No scleral icterus. No conjunctival pallor. Normocephalic, atraumatic. No pharyngeal erythema. No thyromegaly. CARDIOVASCULAR: S1 and S2 present. No murmurs, rubs, or gallops. PULMONARY: Chest is clear to auscultation, no wheezing or crackles. ABDOMEN: Soft, nontender, nondistended, normoactive bowel sounds. No palpable or ganomegaly. MUSCULOSKELETAL: No joint swelling or deformity. EXTREMITIES: No cyanosis, clubbing, or pedal edema. NEUROLOGICAL: Gross neurological examination did not reveal any focal deficits. SKIN: No rashes. Assessment and plan Fall with trauma patient has a mildly comminuted mildly displaced fracture of the superior aspect of the left greater trochanter will be going for an MRI of the hip tomorrow and further recommendations Hx of hypertension on nebivolol which will be held at this time as well as aldactone. Blood pressure is normotensive at this time. Hyperlipidemia maintained on statin therapy. Gastroesophageal reflux disease maintained on protonix Hypothyroidism on synthroid which has been resumed Diabetes mellitus type 2 metformin will be held and continue on accuchecks ACHS and sliding scale insulin. Smoking history GI prophylaxis: protonix DVT prophylaxis: heparin Full Code Patient has been cleared surgically to undergo left hip gamma nail with Dr. Chase tomorrow. Patient is considered low operative and has been medically cleared for surgery. Patient is hesitant on undergoing surgical repair and wishes to further discuss with orthopedics. Continue to hold blood pressure medication as patient is fluctuating between 94 systolic and 139 systolic and we will monitor blood pressure closely and resume nebivolol if needed. Continue to hold metformin and aldactone. Monitor renal function and electrolytes. OT and PT following. The impression and plan of care has been dictated by Carlene Wang Nurse Practitioner as directed. Dr. Kenneth MD I have performed a history and physical examination and medical decision making of this patient, discussed the same with the dictator, and agree with the dictators assessment and plan as written, documented as a scribe. Based on total visit time, I have performed more than 50% of this visit. Objective - Vital Signs Vital signs: Vital Signs Temp 98.0 F 11/18/23 14:00 Pulse 95 11/18/23 14:00 Resp 16 11/18/23 14:00 BP 139/77 11/18/23 14:00 Pulse Ox 96 11/18/23 14:00 FiO2 Intake & Output 11/17/23 11/18/23 11/18/23 18:59 06:59 18:59 Intake Total 320 Balance 320 Intake: Oral 320 Other: Voiding Method Toilet Toilet # Voids 2 3 1 # Bowel Movements 1 - Labs CBC & Chem 7: 11/16/23 18:54 11/18/23 03:50 Labs: Abnormal Lab Results - Last 24 Hours (Table) 11/17/23 11/18/23 11/18/23 Range/Units 20:25 03:50 03:50 BUN 7.3 L (9.0-27.0) mg/dL BUN/Creatinine Ratio 9.12 L (12.00-20.00) Ratio Glucose 128 H (70-110) mg/dL POC Glucose (mg/dL) 125 H (70-110) mg/dL Hemoglobin A1c 7.1 H (<=6.0) % 11/18/23 Range/Units 05:59 BUN (9.0-27.0) mg/dL BUN/Creatinine Ratio (12.00-20.00) Ratio Glucose (70-110) mg/dL POC Glucose (mg/dL) 113 H (70-110) mg/dL Hemoglobin A1c (<=6.0) % Assessment and Plan Time with Patient: Less than 30
[2023-11-18 20:20] LABS: Glucose,Whole Blood 120 mg/dL (70-110)
[2023-11-19 05:42] LABS: Glucose,Whole Blood 121 mg/dL (70-110)
[2023-11-19 08:40] LABS: BUN/Creat Ratio 11.57 Ratio (12.00-20.00); Blood Urea Nitrogen 8.1 mg/dL (9.0-27.0); Calcium 8.9 mg/dL (8.7-10.3); Chloride 107 mmol/L (96-109); Glucose 131 mg/dL (70-110); Potassium 4.5 mmol/L (3.5-5.5); Sodium 143 mmol/L (135-145)
[2023-11-19 12:00] LABS: Glucose,Whole Blood 109 mg/dL (70-110)
[2023-11-19 14:15] LABS: INR 0.9 (<1.2); Partial Thromboplastin Time 24.2 sec (22.0-30.0); Prothrombin Time 10.5 sec (10.0-12.5)
--- NOTE | 2023-11-19 14:28 | P.PN ---
Subjective Progress Note Date: 11/19/23 This is a 73-year-old female with medical history significant for hypertension, hyperlipidemia, hypothyroidism, neuropathy. She comes into the hospital after suffering a fall with trauma. Patient was letting her dog out when she fell and landed on her left side. She did not hit her head and denies any loss of consciousness. Patient was unable to ambulate this morning was having pain over the left hip and left femur so she came into the hospital for further evaluation. Patient had an x-ray completed of the left elbow showing degenerative changes without acute fracture or dislocation. X-ray of the pelvis and left hip shows no acute fracture of the pelvis and no acute fracture of the hip or dislocation. Patient had continued pain and for this reason a hip CT was completed which shows a mildly comminuted mildly displaced fracture of the superior aspect of the left greater trochanter. Patient is not having any chest pain, any shortness of breath. No numbness or tingling in the left leg. White blood cell count is 12.7, electrolytes and renal function are WNL. Urinalysis is normal and not suggestive of infection. We will check an EKG for preoperative clearance. Patient is on aldactone no reported history of heart failure. 11/18/2023 Patient is evaluated today in follow up on the medical floor. Patient underwent MRI of the left hip today which reveals confirmation of the intertrochanteric fracture through the left femur without significant displacement. Mild bilateral hip osteoarthritis. Pelvic transplant kidney without evidence of hydronephrosis. Patient is hesitant on undergoing surgical repair of the left hip and wants to further discuss with the orthopedics surgeon. Chest xray showing no acute pulmonary process. EKG reveals normal sinus rhythm heart rate of [address] and no spec ific ST or T wave changes. Patient is medically cleared with low operative risk to undergo surgical repair of the left hip fracture if patient wishes to proceed. 11/19/2023 Patient is evaluated today in follow-up scheduled to undergo left hip gamma nailing today with Dr. Chase patient reports no pain to the left hip while resting in bed. Remains off of her blood pressure medication and blood pressure is currently normotensive with the 120 systolic. She is not having any shortness of breath or chest pressure she is not having nausea vomiting or diarrhea. She will be evaluated by physical therapy postoperatively. Review of Systems Constitutional: Denied any fatigue denied any fever. Cardio vascular: denied any chest pain, palpitations Gastrointestinal: denied any nausea, vomiting, diarrhea Pulmonary: Denied any shortness of breath cough Neurologic denied any new focal deficits All inpatient medications were reviewed and appropriate changes in these medications as dictated in the interval history and assessment and plan PHYSICAL EXAMINATION: GENERAL: The patient is alert and oriented x3, not in any acute distress. Well developed, well nourished. HEENT: Pupils are round and equally reacting to light. EOMI. No scleral icterus. No conjunctival pallor. Normocephalic, atraumatic. No pharyngeal erythema. No thyromegaly. CARDIOVASCULAR: S1 and S2 present. No murmurs, rubs, or gallops. PULMONARY: Chest is clear to auscultation, no wheezing or crackles. ABDOMEN: Soft, nontender, nondistended, normoactive bowel sounds. No palpable organomegaly. MUSCULOSKELETAL: No joint swelling or deformity. EXTREMITIES: No cyanosis, clubbing, or pedal edema. NEUROLOGICAL: Gross neurological examination did not reveal any focal deficits. SKIN: No rashes. Assessment and plan Fall with trauma patient has a mildly comminuted mildly displaced fracture of the superior aspect of the left greater trochanter will be going for an MRI of the hip tomorrow and further recommendations Hx of hypertension on nebivolol which will be held at this time as well as aldactone. Blood pressure is normotensive at this time. Hyperlipidemia maintained on statin therapy. Gastroesophageal reflux disease maintained on protonix Hypothyroidism on synthroid which has been resumed Diabetes mellitus type 2 metformin will be held and continue on accuchecks ACHS and sliding scale insulin. Smoking history GI prophylaxis: protonix DVT prophylaxis: heparin Full Code Patient has been cleared surgically to undergo left hip gamma nail with Dr. Chase today. Patient is considered low operative and has been medically cleared for surgery. Patient is hesitant on undergoing surgical repair and wishes to further discuss with orthopedics. Continue to hold blood pressure medication as patient is fluctuating between 94 systolic and 139 systolic and we will monitor blood pressure closely and resume nebivolol if needed. Continue to hold metformin and aldactone. Monitor renal function and electrolytes. OT and PT following. The impression and plan of care has been dictated by Carlene Wang Nurse Practitioner as directed. Dr. Kenneth MD I have performed a history and physical examination and medical decision making of this patient, discussed the same with the dictator, and agree with the dictators assessment and plan as written, documented as a scribe. Based on total visit time, I have performed more than 50% of this visit. Objective - Vital Signs Vital signs: Vital Signs Temp 98.7 F 11/19/23 07:25 Pulse 84 11/19/23 07:25 Resp 19 11/19/23 07:25 BP 127/76 11/19/23 07:25 Pulse Ox 93 L 11/19/23 07:25 FiO2 Intake & Output 11/18/23 11/19/23 11/19/23 18:59 06:59 18:59 Intake Total 570 Balance 570 Intake: Oral 570 Other: Voiding Method Toilet Bedside Commode # Voids 2 2 # Bowel Movements 1 - Labs CBC & Chem 7: 11/16/23 18:54 11/19/23 05:13 Labs: Abnormal Lab Results - Last 24 Hours (Table) 11/18/23 11/18/23 11/19/23 Range/Units 16:44 20:18 05:13 BUN 8.1 L (9.0-27.0) mg/dL BUN/Creatinine Ratio 11.57 L (12.00-20.00) Ratio Glucose 131 H (70-110) mg/dL POC Glucose (mg/dL) 129 H 120 H (70-110) mg/dL 11/19/23 Range/Units 05:37 BUN (9.0-27.0) mg/dL BUN/Creatinine Ratio (12.00-20.00) Ratio Glucose (70-110) mg/dL POC Glucose (mg/dL) 121 H (70-110) mg/dL Assessment and Plan Time with Patient: Less than 30
[2023-11-19] MEDS: SODIUM CHLORIDE 0.9% 50 ML with ceFAZolin 2,000 MG IV ONE (14:48)
[2023-11-19 16:15] LABS: Glucose,Whole Blood 117 mg/dL (70-110)
[2023-11-19] MEDS: LACTATED RINGERS 1,000 ML BAG IV STA (16:22)
[2023-11-19] MEDS: ONDANSETRON 4 MG/2 ML VIAL IVP PRN (16:29)
[2023-11-19] MEDS: IV FLUID CONTINUATION 1,000 ML IV ONE (16:39)
[2023-11-19] MEDS ORDERED: KETAMINE HCL IN 0.9 % NACL 50 MG/5 ML SYRINGE ONE (16:43)
[2023-11-19] MEDS ORDERED: fentaNYL (PF) 50 MCG/ML 2 ML AMP ONE (16:43)
[2023-11-19] MEDS ORDERED: PROPOFOL 10 MG/ML 20 ML VIAL IV ONE (16:43)
[2023-11-19] MEDS ORDERED: MIDAZOLAM 2 MG/2 ML VIAL ONE (16:43)
--- NOTE | 2023-11-19 16:52 | P.PN ---
Progress Note - Text I met with the patient yesterday to discuss her MRI findings. Her MRI shows intertrochanteric extension with a nondisplaced intertrochanteric hip fracture. We discussed both nonoperative treatment with protected weightbearing, serial x- rays, and use of a walker versus prophylactic stabilization with an intramedullary hip screw. We discussed that nonoperative treatment would avoid surgery but risk the potential for displacement and require protected weightbearing. Surgery would allow immediate full weightbearing and would prevent displacement but would require surgery. The patient and her daughter were given ample time to ask questions. Following our discussion with the patient and her daughter wish to proceed with surgery.
--- NOTE | 2023-11-19 17:55 | P.OP ---
Date of Procedure: 11/19/23 Preoperative Diagnosis: Left greater trochanter avulsion fracture with intertrochanteric extension across the entire intertrochanteric region Postoperative Diagnosis: Same Procedure(s) Performed: Operative fixation of left intertrochanteric hip fracture with short intramedullary hip screw Anesthesia: spinal Surgeon: Rene Chase Senior Mechanical Designer #1: Sudeep Gibbs Estimated Blood Loss (ml): 100 IV fluids (ml): 800 Pathology: none sent Condition: stable Disposition: PACU Indications for Procedure: The patient is a very pleasant elderly healthy 73-year-old female who sustained a ground-level fall as altering and an isolated left hip injury. She was admitted through the ER and found to have a greater trochanter avulsion fracture. An MRI was obtained which showed intertrochanteric extension. I met with the patient and her daughter to discuss treatment options. We discussed that it could be treated either with nonsurgical treatment, protected weightbearing, and a walker which would risk displacement but avoid surgery versus surgical treatment with an intramedullary hip screw. The patient and her daughter requested proceeding with surgery. Description of Procedure: The patient was identified in preoperative holding and the correct operative extremity was marked with my initials. I reviewed the consent form with the patient and their family and all of their questions were answered. The patient was then brought back to the operating room by anesthesia. Anesthesia, preoperative antibiotics, and tranexamic acid were given by the anesthesia team while on the [place]. Both ankles were padded with webril and boots for the [place] table were applied. The patient was then carefully transferred onto the [place] table. A perineal post was immediately placed. The contralateral arm was s ecured on a well-padded arm howe. The ipsilateral arm was draped across the chest and secured with a pillow, foam, and paper tape to allow access to the proximal femur. Nonsterile drapes were applied to the operative extremity. The height of the table was elevated and the contralateral extremity was dropped towards the floor to facilitate imaging. A timeout was performed identifying the correct patient, operative extremity, and procedure. Fluoroscopy was brought in to assess the fracture. A provisional reduction was performed using longitudinal traction, adduction, and internal rotation. An AP and lateral view were obtained to assess the reduction. The operative extremity was then prepped and draped in the standard sterile fashion. A straight incision was made at the tip of the greater trochanter and extended proximally for 3 cm. Skin and subcutaneous tissues were incised sharply. The underlying fascia was incised in line with the skin incision. An awl was placed just medial to the tip of the greater trochanter on the AP view and colinear with the canal on the lateral view. A 3.2 mm guide pin was then advanced into the proximal femur. The position of the guidepin was verified with fluoroscopy. An opening reamer and soft tissue cannula were placed over the guidepin and used to open the proximal femur to the level of the lesser trochanter. The 3.2 mm guide pin and opening reamer were removed. A short gamma nail was dispensed, hooked up to the targeting arm and I verified that the trochar through the targeting arm lined up with the slots on the nail. The nail was then impacted into the proximal femur until the appropriate depth had been reached. A small stab incision was made over the lateral aspect of the femur using the targeting arm as a reference for the lag screw. Incision was carried down to the skin and fascia down to the lateral cortex of the femur. The trocar was then placed up to the lateral cortex of the femur and a guidepin was placed in the low center position on the AP view and centered in the femoral head on the lateral view. Once the position of the guidewire was verified, we reamed to appropriate depth and placed a lag screw over the guidewire and into the femoral head. The position of the lag screw was assessed with fluoroscopy. The guidewire was then removed from the femoral head. The set screw was placed proximally, brought fully down and then released a quarter turn to allow compression. A final stab incision was made over the lateral femur at the site of the distal interlocking screw, again using the targeting arm as a reference. The trocar and sleeve were placed to the lateral cortex of the femur. We then drilled and placed a distal interlocking screw. Final fluoroscopic images were taken showing excellent reduction of the fracture and appropriate position of the implants. All wounds were thoroughly irrigated and closed in layers. Sterile dressings were applied. The drapes were taken down, the patient was transferred off the [place] table, and was brought to recovery having tolerated the procedure well. Sudeep Gibbs PA-C Was required as a skilled food service assistant for patient positioning, draping, exposure, retraction, closure of wound, and application of dressing. PLAN: The patient can weight-bear as tolerated on their operative extremity. 2 doses of postoperative antibiotics. DVT prophylaxis with aspirin 81 mg twice a day starting the day of surgery. Dressing change on postoperative day #2. Appreciate Internal Medical assistance with perioperative medical management. Discharge planning in process.
[2023-11-19] MEDS ORDERED: NALOXONE 0.4 MG/ML 1 ML VIAL IV PRN (17:57)
[2023-11-19] MEDS: HYDROmorphone 0.5 MG/0.5 ML SYRINGE IVP PRN ×2 (18:18→21:21)
--- NOTE | 2023-11-19 19:03 | XR ---
Fluoroscopy INDICATION: Pain FINDINGS: Fluoroscopy time: 45 seconds. Total dose area product (DAP) in uGy*m?, mGy*cm? (or similar): 4.5832 Images obtained: 4. IMPRESSION: 1. Documentation of fluoroscopy.
[2023-11-19] MEDS: HYDROmorphone 0.5 MG/0.5 ML SYRINGE IVP STA (19:17)
[2023-11-19 20:14] LABS: Glucose,Whole Blood 85 mg/dL (70-110)
[2023-11-20 02:54] LABS: Basophils # (A) 0.06 X 10*3/uL (0.00-0.10); Basophils % (A) 0.5 %; Eosinophils % (A) 1.6 %; HGB 12.8 g/dL (12.0-15.0); Lymphocytes # (A) 1.87 X 10*3/uL (0.90-5.00); Lymphocytes % (A) 14.6 %; MCH 27.9 pg (27.0-32.0); MCHC 29.8 g/dL (32.0-37.0); MCV 93.9 FL (80.0-97.0); Mean Platelet Volume 13.1 FL (9.5-12.2); Monocytes # (A) 0.75 X 10*3/uL (0.20-1.00); Monocytes % (A) 5.8 %; NRBC Per 100 WBC 0 X 10*3/uL (0.00-0.01); Platelet Count 223 X 10*3/uL (140-440); RBC 4.58 X 10*6/uL (4.10-5.20); RDW 14.2 % (11.5-14.5); WBC 12.85 X 10*3/uL (4.50-10.00)
[2023-11-20 05:38] LABS: Glucose,Whole Blood 161 mg/dL (70-110)
--- NOTE | 2023-11-20 08:08 | FL ---
Fluoroscopy History: LT hip ORIF LT gamma nail with Braaksma. 45 sec fluoro time. 4 images sent. 4.5832 DAP.
--- NOTE | 2023-11-20 08:46 | P.PN ---
Subjective Progress Note Date: 11/20/23 Principal diagnosis: Left greater trochanter fracture The patient had no acute events overnight. The patient is doing well this morning. The pain in their left hip has improved since surgery. They deny chest pain or shortness of breath. Objective - Vital Signs Vital signs: Vital Signs Temp 98.6 F 11/20/23 07:30 Pulse 100 11/20/23 07:30 Resp 17 11/20/23 07:30 BP 109/62 11/20/23 07:30 Pulse Ox 96 11/20/23 07:30 FiO2 Intake & Output 11/19/23 11/20/23 11/20/23 18:59 06:59 18:59 Intake Total 650 Output Total 200 Balance 450 Intake: IV 650 Output: Estimated Blood Loss 200 Other: Voiding Method Toilet # Voids 3 1 # Bowel Movements 1 - Exam On exam the patient is resting comfortably in bed. No apparent distress. They are alert and able to answer questions. On inspection of the left hip the skin is intact. There is no drainage. There is a small amount of strikethrough in the middle dressing. There is mild swelling in the left thigh. The femoral nerve function is intact. Patient is able to actively plantarflex and dorsiflex the ankle and toes. - Labs CBC & Chem 7: 11/19/23 19:42 11/19/23 05:13 Labs: Abnormal Lab Results - Last 24 Hours (Table) 11/19/23 11/19/23 11/19/23 Range/Units 05:13 16:13 19:42 WBC 12.85 H (4.50-10.00) X 10*3/uL MCHC 29.8 L (32.0-37.0) g/dL MPV 13.1 H (9.5-12.2) FL Immature Gran # 0.07 H (0.00-0.04) X 10*3/uL Neutrophils # 9.90 H (1.80-7.70) X 10*3/uL BUN 8.1 L (9.0-27.0) mg/dL BUN/Creatinine Ratio 11.57 L (12.00-20.00) Ratio Glucose 131 H (70-110) mg/dL POC Glucose (mg/dL) 117 H (70-110) mg/dL 11/20/23 Range/Units 05:33 WBC (4.50-10.00) X 10*3/uL MCHC (32.0-37.0) g/dL MPV (9.5-12.2) FL Immature Gran # (0.00-0.04) X 10*3/uL Neutrophils # (1.80-7.70) X 10*3/uL BUN (9.0-27.0) mg/dL BUN/Creatinine Ratio (12.00-20.00) Ratio Glucose (70-110) mg/dL POC Glucose (mg/dL) 161 H (70-110) mg/dL Assessment and Plan Assessment: POD#1 Operative fixation of left intertrochanteric hip fracture with short intramedullary hip screw. Plan: Weight-bear as tolerated on the operative extremity with walker. Leave surgical dressing in place. Patient will work with physical therapy today. Discharge plan for tonight or tomorrow and home versus rehab pending physical therapy evaluation.
[2023-11-20 11:20] LABS: Glucose,Whole Blood 123 mg/dL (70-110)
--- NOTE | 2023-11-20 12:46 | P.PN ---
Subjective Progress Note Date: 11/20/23 This is a 73-year-old female with medical history significant for hypertension, hyperlipidemia, hypothyroidism, neuropathy. She comes into the hospital after suffering a fall with trauma. Patient was letting her dog out when she fell and landed on her left side. She did not hit her head and denies any loss of consciousness. Patient was unable to ambulate this morning was having pain over the left hip and left femur so she came into the hospital for further evaluation. Patient had an x-ray completed of the left elbow showing degenerative changes without acute fracture or dislocation. X-ray of the pelvis and left hip shows no acute fracture of the pelvis and no acute fracture of the hip or dislocation. Patient had continued pain and for this reason a hip CT was completed which shows a mildly comminuted mildly displaced fracture of the superior aspect of the left greater trochanter. Patient is not having any chest pain, any shortness of breath. No numbness or tingling in the left leg. White blood cell count is 12.7, electrolytes and renal function are WNL. Urinalysis is normal and not suggestive of infection. We will check an EKG for preoperative clearance. Patient is on aldactone no reported history of heart failure. 11/18/2023 Patient is evaluated today in follow up on the medical floor. Patient underwent MRI of the left hip today which reveals confirmation of the intertrochanteric fracture through the left femur without significant displacement. Mild bilateral hip osteoarthritis. Pelvic transplant kidney without evidence of hydronephrosis. Patient is hesitant on undergoing surgical repair of the left hip and wants to further discuss with the orthopedics surgeon. Chest xray showing no acute pulmonary process. EKG reveals normal sinus rhythm heart rate of 71 and no spec ific ST or T wave changes. Patient is medically cleared with low operative risk to undergo surgical repair of the left hip fracture if patient wishes to proceed. 11/19/2023 Patient is evaluated today in follow-up scheduled to undergo left hip gamma nailing today with Dr. Chase patient reports no pain to the left hip while resting in bed. Remains off of her blood pressure medication and blood pressure is currently normotensive with the 120 systolic. She is not having any shortness of breath or chest pressure she is not having nausea vomiting or diarrhea. She will be evaluated by physical therapy postoperatively. 11/20/2023 Patient is evaluated today postoperative day #1 left hip gamma nailing with Dr. Chase. Patient reports significant pain to the left hip and her lower back. She is continued on [place] as well as IV Dilaudid for breakthrough pain. Patient also has morphine on board. Will dynamically she is stable she is afebrile and on room air. We did order incentive spirometer for this patient would recommend to complete 10 times an hour this was discussed with patient. Review of Systems Constitutional: Denied any fatigue denied any fever. Cardio vascular: denied any chest pain, palpitations Gastrointestinal: denied any nausea, vomiting, diarrhea Pulmonary: Denied any shortness of breath cough Neurologic denied any new focal deficits All inpatient medications were reviewed and appropriate changes in these medications as dictated in the interval history and assessment and plan PHYSICAL EXAMINATION: GENERAL: The patient is alert and oriented x3, not in any acute distress. Well developed, well nourished. HEENT: Pupils are round and equally reacting to light. EOMI. No scleral icterus. No conjunctival pallor. Normocephalic, atraumatic. No pharyngeal erythema. No thyromegaly. CARDIOVASCULAR: S1 and S2 present. No murmurs, rubs, or gallops. PULMONARY: Chest is clear to auscultation, no wheezing or crackles. ABDOMEN: Soft, nontender, nondistended, normoactive bowel sounds. No palpable organomegaly. MUSCULOSKELETAL: No joint swelling or deformity. EXTREMITIES: No cyanosis, clubbing, or pedal edema. NEUROLOGICAL: Gross neurological examination did not reveal any focal deficits. SKIN: No rashes. Assessment and plan Fall with trauma patient has a mildly comminuted mildly displaced fracture of the superior aspect of the left greater trochanter pod #1 left hip gamma nailing. Hx of hypertension on nebivolol which will be held at this time as well as aldactone. Blood pressure is normotensive at this time. Hyperlipidemia maintained on statin therapy. Gastroesophageal reflux disease maintained on protonix Hypothyroidism on synthroid which has been resumed Diabetes mellitus type 2 metformin will be held and continue on accuchecks ACHS and sliding scale insulin. Smoking history GI prophylaxis: protonix DVT prophylaxis: heparin Full Code Plan Continue to hold blood pressure medication including Aldactone and NovoLog patient is currently normotensive. [facility] Therapy has recommended subacute rehab and discharge planning in place with social work. Patient has significant pain to the surgical site and continues on IV and oral pain medication. Continue with supportive care Encourage incentive spirometer Thank you for this consultation we will continue to follow along with you this hospital stay. The impression and plan of care has been dictated by Carlene Wang, Nurse Practitioner as directed. Dr. Kenneth MD I have performed a history and physical examination and medical decision making of this patient, discussed the same with the dictator, and agree with the dictators assessment and plan as written, documented as a scribe. Based on total visit time, I have performed more than 50% of this visit. Objective - Vital Signs Vital signs: Vital Signs Temp 98.6 F 11/20/23 07:30 Pulse 100 11/20/23 07:30 Resp 17 11/20/23 07:30 BP 109/62 11/20/23 07:30 Pulse Ox 96 11/20/23 07:30 FiO2 Intake & Output 11/19/23 11/20/23 11/20/23 18:59 06:59 18:59 Intake Total 650 Output Total 200 Balance 450 Intake: IV 650 Output: Estimated Blood Loss 200 Other: Voiding Method Toilet Toilet # Voids 3 1 # Bowel Movements 1 - Labs CBC & Chem 7: 11/19/23 19:42 11/19/23 05:13 Labs: Abnormal Lab Results - Last 24 Hours (Table) 11/19/23 11/19/23 11/20/23 Range/Units 16:13 19:42 05:33 WBC 12.85 H (4.50-10.00) X 10*3/uL MCHC 29.8 L (32.0-37.0) g/dL MPV 13.1 H (9.5-12.2) FL Immature Gran # 0.07 H (0.00-0.04) X 10*3/uL Neutrophils # 9.90 H (1.80-7.70) X 10*3/uL POC Glucose (mg/dL) 117 H 161 H (70-110) mg/dL 11/20/23 Range/Units 11:19 WBC (4.50-10.00) X 10*3/uL MCHC (32.0-37.0) g/dL MPV (9.5-12.2) FL Immature Gran # (0.00-0.04) X 10*3/uL Neutrophils # (1.80-7.70) X 10*3/uL POC Glucose (mg/dL) 123 H (70-110) mg/dL Assessment and Plan Time with Patient: Less than 30
[2023-11-20 16:43] LABS: Glucose,Whole Blood 138 mg/dL (70-110)
[2023-11-20 20:46] LABS: Glucose,Whole Blood 152 mg/dL (70-110)
[2023-11-21 06:00] LABS: Glucose,Whole Blood 148 mg/dL (70-110)
--- NOTE | 2023-11-21 09:37 | P.PN ---
Subjective Progress Note Date: 11/21/23 Principal diagnosis: Left greater trochanter fracture The patient had no acute events overnight. The patient is doing well this morning. The pain in their left hip has improved since surgery. They deny chest pain or shortness of breath. They worked PT and rehab was recommended. Objective - Vital Signs Vital signs: Vital Signs Temp 98.9 F 11/21/23 07:05 Pulse 97 11/21/23 07:05 Resp 18 11/21/23 07:05 BP 119/61 11/21/23 07:05 Pulse Ox 91 L 11/21/23 07:05 FiO2 Intake & Output 11/20/23 11/21/23 11/21/23 18:59 06:59 18:59 Other: Voiding Method Toilet Toilet # Voids 4 2 - Exam On exam the patient is resting comfortably in bed. No apparent distress. They are alert and able to answer questions. On inspection of the left hip the skin is intact. There is no drainage. There is a small amount of strikethrough in the middle dressing. There is mild swelling in the left thigh. The femoral nerve function is intact. Patient is able to actively plantarflex and dorsiflex the ankle and toes. - Labs CBC & Chem 7: 11/19/23 19:42 11/19/23 05:13 Labs: Abnormal Lab Results - Last 24 Hours (Table) 11/20/23 11/20/23 11/20/23 Range/Units 11:19 16:42 20:44 POC Glucose (mg/dL) 123 H 138 H 152 H (70-110) mg/dL 11/21/23 Range/Units 05:57 POC Glucose (mg/dL) 148 H (70-110) mg/dL Assessment and Plan Assessment: POD#2 Operative fixation of left intertrochanteric hip fracture with short intramedullary hip screw. Plan: Weight-bear as tolerated on the operative extremity with walker. Leave surgical dressing in place. Patient worked with physical therapy and rehab was recommended. Plan transfer to rehab tomorrow per case management.
[2023-11-21] MEDS ORDERED: HYDROcodone/APAP 10-325MG 1 EACH TAB PO PRN (09:45)
[2023-11-21 11:39] LABS: Glucose,Whole Blood 115 mg/dL (70-110)
--- NOTE | 2023-11-21 13:57 | P.DS ---
Providers Date of admission: 11/18/23 08:55 Expected date of discharge: 11/21/23 Attending physician: Gene Alvarez Consults: 11/16/23 17:59 Consult Physician Urgent Consulting Provider: Rene Chase Consult Reason/Comments: Left greater trochanter fracture Do you want consulting provider notified?: Yes Primary care physician: David Guerrero [facility] Course: Progress Note Date: 11/20/23 This is a 73-year-old female with medical history significant for hypertension, hyperlipidemia, hypothyroidism, neuropathy. She comes into the hospital after suffering a fall with trauma. Patient was letting her dog out when she fell and landed on her left side. She did not hit her head and denies any loss of consciousness. Patient was unable to ambulate this morning was having pain over the left hip and left femur so she came into the hospital for further evaluation. Patient had an x-ray completed of the left elbow showing degenerative changes without acute fracture or dislocation. X-ray of the pelvis and left hip shows no acute fracture of the pelvis and no acute fracture of the hip or dislocation. Patient had continued pain and for this reason a hip CT was completed which shows a mildly comminuted mildly displaced fracture of the superior aspect of the left greater trochanter. Patient is not having any chest pain, any shortness of breath. No numbness or tingling in the left leg. White blood cell count is 12.7, electrolytes and renal function are WNL. Urinalysis is normal and not suggestive of infection. We will check an EKG for preoperative clearance. Patient is on aldactone no reported history of heart failure. 11/18/2023 Patient is evaluated today in follow up on the medical floor. Patient underwent MRI of the left hip today which reveals confirmation of the intertrochanteric fracture through the left femur without significant displacement. Mild bilateral hip osteoarthritis. Pelvic transplant kidney without evidence of hydronephrosis. Patient is hesitant on undergoing surgical repair of the left hip and wants to further discuss with the orthopedics surgeon. Chest xray showing no acute pulmonary process. EKG reveals normal sinus rhythm heart rate of [address] or T wave changes. Patient is medically cleared with low operative risk to undergo surgical repair of the left hip fracture if patient wishes to proceed. 11/19/2023 Patient is evaluated today in follow-up scheduled to undergo left hip gamma nailing today with Dr. Chase patient reports no pain to the left hip while resting in bed. Remains off of her blood pressure medication and blood pressure is currently normotensive with the 120 systolic. She is not having any shortness of breath or chest pressure she is not having nausea vomiting or diarrhea. She will be evaluated by physical therapy postoperatively. 11/20/2023 Patient is evaluated today postoperative day #1 left hip gamma nailing with Dr. Chase. Patient reports significant pain to the left hip and her lower back. She is continued on [place] as well as IV Dilaudid for breakthrough pain. Patient also has morphine on board. Will dynamically she is stable she is afebrile and on room air. We did order incentive spirometer for this patient would recommend to complete 10 times an hour this was discussed with patient. November 20: Patient been cleared by Dr. Chase for discharge to rehab. Spoke to protective services social worker. On the operative [id number] as tolerated with walker. Eating about 25 to 50%. Some pain at the operative site. Able to use a rolling walker today with physical therapy. Discussion and discharge planning more than 35 minutes On examination: VITAL SIGNS: [98.9, 97, 18, 1 one 9 x 61, 91% room air] GENERAL APPEARANCE: Reclining, comfortable HEENT: Normal external appearance of nose and ear. Oral cavity normal EYES: Pupils equal. Conjunctiva normal. NECK: JVD not raised. Mass not palpable. RESPIRATORY: Respiratory effort normal. Lungs clear to auscultation. CARDIOVASCULAR: First and second sounds normal. No edema. ABDOMEN: Soft. Liver and spleen not palpable. No tenderness. No mass palpable. MUSCULOSKELETAL: Dressing over left hip. OA. PSYCHIATRY: Alert and oriented x3. Mood and affect normal. INVESTIGATIONS, reviewed in the clinical context: November 18: White count 12.8 hemoglobin 12.8 platelets 223. Potassium 4.5 creatinine 0.7 Assessment and plan Fall with trauma patient has a mildly comminuted mildly displaced fracture of the superior aspect of the left greater trochanter pod #1 left hip gamma nailing. Essential hypertension. Blood pressure running on the lower side. Hence nebivolol and Aldactone were discontinued Hyperlipidemia maintained on statin therapy. Gastroesophageal reflux disease maintained on protonix Hypothyroidism on synthroid Diabetes mellitus type 2 metformin accuchecks ACHS and sliding scale insulin. Full Code Disposition: [facility] for rehab Plan - Discharge Summary Discharge Rx Participant: No New Discharge Prescriptions: New Acetaminophen Tab [Tylenol] 650 mg PO Q6HR PRN tab PRN Reason: Mild Pain Or Fever > 100.5 HYDROcodone/APAP 10-325MG [[place] 10] 1 each PO Q8H PRN #24 tab PRN Reason: Pain Aspirin 81 mg PO BID #60 tab Psyllium Husk (with Sugar) [Metamucil Powder] 0 gm PO DAILY #575 gm Continue Magnesium Oxide [Mag-Ox] 400 mg PO DAILY Gabapentin 800 mg PO BID@0700,2100 Omeprazole 20 mg PO DAILY Pravastatin Sodium [Pravachol] 40 mg PO DAILY Gabapentin 800 mg PO DAILY@1400 Levothyroxine Sodium [Synthroid] 75 mcg PO DAILY metFORMIN HCL [metFORMIN HCL ER] 750 mg PO DAILY Changed Cyclobenzaprine [Flexeril] 10 mg PO TID #0 Discontinued Docusate [Colace] 100 mg PO TID Baclofen [Lioresal] 10 mg PO BID HYDROcodone/APAP 10-325MG [[place] 10-325] 1 tab PO TID PRN PRN Reason: Pain Nebivolol HCl 5 mg PO DAILY Spironolactone [Aldactone] 50 mg PO DAILY Discharge Medication List Gabapentin 800 mg PO BID@0700,2100 11/16/23 [History] Gabapentin 800 mg PO DAILY@1400 11/16/23 [History] Levothyroxine Sodium [Synthroid] 75 mcg PO DAILY 11/16/23 [History] Magnesium Oxide [Mag-Ox] 400 mg PO DAILY 11/16/23 [History] Omeprazole 20 mg PO DAILY 11/16/23 [History] Pravastatin Sodium [Pravachol] 40 mg PO DAILY 11/16/23 [History] metFORMIN HCL [metFORMIN HCL ER] 750 mg PO DAILY 11/16/23 [History] Acetaminophen Tab [Tylenol] 650 mg PO Q6HR PRN tab 11/21/23 [Rx] Aspirin 81 mg PO BID #60 tab 11/21/23 [Rx] Cyclobenzaprine [Flexeril] 10 mg PO TID #0 11/21/23 [Rx] HYDROcodone/APAP 10-325MG [[place] 10] 1 each PO Q8H PRN #24 tab 11/21/23 [Rx] Psyllium Husk (with Sugar) [Metamucil Powder] 0 gm PO DAILY #575 gm 11/21/23 [Rx] Follow up Appointment(s)/Referral(s): Home,[facility] [NON-STAFF] - As Needed ([facility] will call you to schedule your in home nursing and physical therapy visits. ) David Guerrero, [Primary Care Provider] - 1-2 days
[2023-11-21] MEDS: HYDROcodone/APAP 5-325MG 1 EACH TAB PO PRN (14:50)
[2023-11-21 15:07] VITALS: BP 127/77; PULSE 110; RESP 17; TEMP 99.5
== END 2023-11-21 17:07 | DRG 482 ==
LOC: EC 09:38 → 4SSUR 18:16 → OBSVTOIN 11-18 08:55
PROVIDERS: ADMIT Hospitalist; ATTEND Hospitalist
PROC: 0QS706Z Reposition Left Upper Femur with Intramedullary Internal Fixation Device, Open Approach (ICD-10-PCS; principal; 2023-11-19 09:00)
DX: S72.142A Displaced intertrochanteric fracture of left femur, initial encounter for closed fracture (principal); W01.0XXA Fall on same level from slipping, tripping and stumbling without subsequent striking against object, initial encounter; Y92.009 Unspecified place in unspecified non-institutional (private) residence as the place of occurrence of the external cause; Z28.310 Unvaccinated for COVID-19; S50.312A Abrasion of left elbow, initial encounter; M16.0 Bilateral primary osteoarthritis of hip; I10 Essential (primary) hypertension; E78.5 Hyperlipidemia, unspecified; K21.9 Gastro-esophageal reflux disease without esophagitis; E03.9 Hypothyroidism, unspecified; E11.9 Type 2 diabetes mellitus without complications; Z79.899 Other long term (current) drug therapy; Z79.890 Hormone replacement therapy; Z79.84 Long term (current) use of oral hypoglycemic drugs; Z87.891 Personal history of nicotine dependence
CPT/HCPCS: 71046; 73502; 80048; 80053; 81001; 83036; 85025; 85610; 85730; 90471; 90715; 93005; 96372; 99285

== ENCOUNTER → 2024-08-24 | Outpatient (CLI) | payer MEDICARE, OTHER ==
--- NOTE | 2024-08-24 14:44 | MM ---
Reason for Exam: Screening (asymptomatic). Patient History: Menarche at age 15. First Full-Term at age 24. Postmenopausal. Hormonal Contraceptives for 6 months. Risk Values: Lana 5 year model risk: 1.6%. NCI Lifetime model risk: 4.1%. Prior Study Comparison: No prior studies available for comparison. Tissue Density: The breasts are almost entirely fatty. Findings: Analyzed By CAD. There is no suspicious group of microcalcifications. There is a subcentimeter nodule spot compression view recommended. Overall Assessment: Incomplete: need additional imaging evaluation, BI-RAD 0 Management: Special View Mammogram of the right breast. . Patient should continue monthly self-breast exams. A clinical breast exam by your physician is recommended on an annual basis. This exam should not preclude additional follow-up of suspicious palpable abnormalities. Note on Lana scores and lifetime risk: 1. A Lana score greater than 3% is considered moderate risk. If this is the case, consider specialist referral to assess eligibility for a risk reducing agent. 2. If overall lifetime risk for the development of breast cancer is 20% or higher, the patient may qualify for future screening with alternating mammogram and breast MRI. [facility], , 08/24/2024 2:41 PM. Electronically signed and approved by: Cecilio Gonzales M.D. Radiologis
== END | disposition home or self-care (01) ==
LOC: RADMAMWWP 13:26
PROVIDERS: ATTEND Family Medicine
DX: Z12.31 Encounter for screening mammogram for malignant neoplasm of breast (principal); R92.313 Mammographic fatty tissue density, bilateral breasts; Z78.0 Asymptomatic menopausal state; Z92.0 Personal history of contraception
CPT/HCPCS: 77063; 77067

== ENCOUNTER → 2024-09-04 | Outpatient (CLI) | payer MEDICARE, OTHER ==
--- NOTE | 2024-09-04 11:03 | MM ---
Reason for Exam: Additional evaluation requested from abnormal screening. Last screening mammogram was performed less than 1 month ago. Patient History: Menarche at age 15. First Full-Term at age 24. Postmenopausal. Hormonal Contraceptives for 6 months. Risk Values: Lana 5 year model risk: 1.6%. NCI Lifetime model risk: 4.1%. Prior Study Comparison: 08/24/2024 Bilateral MG 3D screening mammo w/cad, [facility]. Tissue Density: Right: The breasts are almost entirely fatty. Findings: Analyzed By CAD. Nodule described previously corresponds to a mole. No distinct mass is appreciated. No evidence for distortion. Overall Assessment: Benign, BI-RAD 2 Management: Screening Mammogram of both breasts in 1 year. . Results were given to the patient verbally at the time of exam. Patient should continue monthly self-breast exams. A clinical breast exam by your physician is recommended on an annual basis. This exam should not preclude additional follow-up of suspicious palpable abnormalities. Note on Lana scores and lifetime risk: 1. A Lana score greater than 3% is considered moderate risk. If this is the case, consider specialist referral to assess eligibility for a risk reducing agent. 2. If overall lifetime risk for the development of breast cancer is 20% or higher, the patient may qualify for future screening with alternating mammogram and breast MRI. [facility], , 09/04/2024 11:01 AM. Electronically signed and approved by: Dany Smith M.D. Radiologis
== END | disposition home or self-care (01) ==
LOC: RADMAMWWP 10:25
PROVIDERS: ATTEND Family Medicine
DX: R92.8 Other abnormal and inconclusive findings on diagnostic imaging of breast (principal); R92.311 Mammographic fatty tissue density, right breast; Z78.0 Asymptomatic menopausal state; Z92.0 Personal history of contraception
CPT/HCPCS: 77065; G0279; 77061